=== PATIENT | female | born 1980 | race Caucasian/White ===

== ENCOUNTER → 2019-03-04 12:38 | Outpatient (CLI) | payer OTHER, SELFPAY ==
--- NOTE | 2019-03-04 | DI.MRI.S_ITS ---
PROCEDURE: MR HEAD/BRAIN WO/W CON INDICATIONS: multiple sclerosis surveillance TECHNIQUE: Noncontrast sagittal and axial FLAIR, axial and coronal T2 fast spin echo, axial VIBE, axial gradient echo, axial diffusion and ADC through the brain. After the administration of contrast, axial and coronal VIBE with fat saturation through the brain. COMPARISON: [facility], MR, C-SPINE W&WO CONTRAST, 10/30/2016, 12:44. [facility], MR, BRAIN W&WO CONTRAST, 06/08/2015, 7:08. [facility], MR, BRAIN W&WO CONTRAST, 10/30/2016, 12:21. FINDINGS: Image quality: Excellent. CSF spaces: Ventricles are normal in size and shape. Basal cisterns are patent. No extra-axial fluid collections. Brain: No intracranial bleeds or mass effects. Ellis-white matter interface appears intact. No suspicious white matter lesions. No abnormal intracranial enhancement. Diffusion weighted images show no acute ischemic insults. Brainstem appears normal. Normal intravascular flow voids are present. Punctate subcortical white matter hyperintensity is noted in the inferior left frontal lobe. This is unchanged. Skull and face: Calvarial marrow signal is normal. Orbits appear normal. Sinuses: Sinuses demonstrate mild to moderate post sinus mucosal thickening most prominent in the right maxillary ethmoid air cells. There is near complete opacification within the sphenoid sinuses. IMPRESSION: 1. Unchanged punctate subcortical white matter hyperintensity in inferior right frontal lobe. It is overall nonspecific. However, given history of demyelinating disease, this can be reflective. 2. Significant post sinus disease. Dictated by: Lola Deutsch M.D. on 03/04/2019 at 15:15 Approved by: Lola Deutsch M.D. on 03/04/2019 at 15:29
--- NOTE | 2019-03-04 | DI.MRI.S_ITS ---
PROCEDURE: MR CERVICAL SPINE WO/W CON INDICATIONS: surveillance ms TECHNIQUE: Noncontrast sagittal T1 spin echo and T2 fast spin echo, sagittal STIR, sagittal PD fast spin echo, foraminal oblique sagittal T2 fast spin echo, axial gradient echo or T2 fast spin echo through the cervical spine. After the administration of contrast, sagittal and axial T1 spin echo with fat saturation through the cervical spine. COMPARISON: [facility], MR, C-SPINE W&WO CONTRAST, 06/08/2015, 7:32. [facility], MR, C-SPINE W&WO CONTRAST, 12/18/2015, 17:36. [facility], MR, C-SPINE W&WO CONTRAST, 10/30/2016, 12:44. FINDINGS: Image quality: Excellent. Alignment and curvature: There is normal bony alignment. Marrow: Marrow demonstrates normal overall signal. Spinal cord: Visualized spinal cord is normal in size, without white matter lesions. No suspicious intramedullary enhancement. No cerebellar tonsillar herniation. Paraspinous soft tissues: No paravertebral masses or suspicious enhancement. C2-C3: No disc bulge, spinal stenosis or foraminal narrowing. C3-C4: No disc bulge, spinal stenosis or foraminal narrowing. C4-C5: Trace disc bulge with minimal canal narrowing. Mild bilateral foraminal narrowing with uncovertebral hypertrophy, minimally progressive. C5-C6: Minimal disc bulge with minimal canal narrowing. Mild bilateral foraminal narrowing with uncovertebral hypertrophy. No interval change. C6-C7: No disc bulge, spinal stenosis or foraminal narrowing. C7-T1: No disc bulge, spinal stenosis or foraminal narrowing. IMPRESSION: 1. Early degenerative changes minimally progressive compared to prior exam. 2. No areas of spinal cord abnormality. Dictated by: Lola Deutsch M.D. on 03/04/2019 at 15:29 Approved by: Lola Deutsch M.D. on 03/04/2019 at 15:34
== END ==
DX: G35 Multiple sclerosis (principal); J32.4 Chronic pansinusitis
CPT/HCPCS: 70553; 72156; A9579; Q9967